=== PATIENT | female | born 1930 | race Caucasian/White ===

== ENCOUNTER 2016-12-25 07:59 | Day surgery (SDC) | payer MEDICARE ==
[~2016-12-25] VITALS: Ht 149.9 cm; Wt 43.5 kg
[~2016-12-25 07:59] MED LIST: ASCO10007 PO; CEPH-375 PO; MULT-696 PO; Vitamin B-12 PO; [UNRECOGNIZED DRUG - OTHER] PO; [UNRECOGNIZED DRUG - OTHER] PO; [UNRECOGNIZED DRUG - OTHER] PO; [UNRECOGNIZED DRUG - OTHER] PO; [UNRECOGNIZED DRUG - OTHER] PO
[2016-12-25] MEDS ORDERED: BUPIVACAINE/PF-EPI 0.5% 1:200K ONE (09:01)
[2016-12-25] MEDS ORDERED: LACTATED RINGERS 1,000 ML IV SCH (09:07)
[2016-12-25 09:24] VITALS: BP 182/62
[2016-12-25] MEDS ORDERED: ACETAMINOPHEN 325 MG TABLET PO PRN (09:30)
[2016-12-25] MEDS ORDERED: OXYcodone 5 MG/5 ML ORAL.SOL UDC PO PRN (09:30)
[2016-12-25] MEDS ORDERED: hydrALAzine 20 MG/ML, 1ML IV PRN (09:30)
[2016-12-25] MEDS ORDERED: ONDANSETRON 2MG/ML, 2ML IVPush PRN (09:30)
[2016-12-25] MEDS ORDERED: HYDROmorphone 1 MG/ML, 1ML IV PRN (09:30)
[2016-12-25] MEDS ORDERED: MIDAZOLAM 1 MG/ML, 2ML IV PRN (09:30)
[2016-12-25] MEDS ORDERED: FENTANYL PF 100 MCG/2ML IV PRN (09:30)
[2016-12-25] MEDS ORDERED: PROMETHAZINE 25 MG/ML, 1ML IV PRN (09:30)
[2016-12-25] MEDS ORDERED: ALBUTEROL SULFATE 2.5 MG/3 ML NPPB PRN (09:30)
[2016-12-25] MEDS ORDERED: LABETALOL 5MG/ML, 20ML IV PRN (09:30)
[2016-12-25] MEDS ORDERED: KETAMINE 10 MG/ML, 20ML ONE (10:15)
[2016-12-25] MEDS ORDERED: PROPOFOL 10 MG/ML, 20ML ONE (10:41)
[2016-12-25] MEDS ORDERED: CEFAZOLIN 1,000 MG ONE (10:41)
[2016-12-25] MEDS ORDERED: ONDANSETRON 2MG/ML, 2ML ONE (10:41)
[2016-12-25] MEDS ORDERED: FENTANYL PF 100 MCG/2ML ONE (10:49)
[2016-12-25] MEDS ORDERED: ACETAMINOPHEN 650 MG/20.3 ML UDC ONE (10:49)
[2016-12-25] MEDS ORDERED: OXYcodone 5 MG/5 ML ORAL.SOL UDC ONE (10:49)
== END 2016-12-25 12:40 | disposition home or self-care (01) ==
LOC: OUT 07:59
PROVIDERS: ATTEND Surgery
DX: C44.722 Squamous cell carcinoma of skin of right lower limb, including hip (principal); Z98.890 Other specified postprocedural states; Z87.891 Personal history of nicotine dependence
CPT/HCPCS: 14021; 88305; J0690; J2405; J2704; J7120

== ENCOUNTER → 2017-04-17 | Outpatient (CLI) | payer MEDICARE ==
[~2017-04-17] MED LIST changes: +ASCO100019 PO; -ASCO10007 PO; +None at this Time
== END | disposition home or self-care (01) ==
LOC: STAR 11:42
PROVIDERS: ATTEND Surgery
DX: Z01.818 Encounter for other preprocedural examination (principal); R94.31 Abnormal electrocardiogram [ECG] [EKG]; C44.702 Unspecified malignant neoplasm of skin of right lower limb, including hip
CPT/HCPCS: 93005

== ENCOUNTER → 2017-05-29 | Outpatient (CLI) | payer MEDICARE ==
[~2017-05-29] MED LIST changes: +REGADENOSON 0.4 MG/5 ML SYRINGE ONE
== END ==
LOC: CVU 07:45
PROVIDERS: ATTEND Internal Medicine Cardiovascular Disease
DX: I08.1 Rheumatic disorders of both mitral and tricuspid valves (principal); E86.0 Dehydration
CPT/HCPCS: 78452; 93017; 93306; A9502; J2785

== ENCOUNTER 2018-12-31 08:50 | Outpatient (CLI) | payer MEDICARE | END 2018-12-31 23:59 | disposition home or self-care (01) | LOC: CFH 08:50 | PROVIDERS: ATTEND Homeopath | DX: Z13.220 Encounter for screening for lipoid disorders (principal); Z13.0 Encounter for screening for diseases of the blood and blood-forming organs and certain disorders involving the immune mechanism; E72.11 Homocystinuria; E78.00 Pure hypercholesterolemia, unspecified; E03.8 Other specified hypothyroidism; R68.89 Other general symptoms and signs; R74.8 Abnormal levels of other serum enzymes; R53.82 Chronic fatigue, unspecified | CPT/HCPCS: 36415; 80053; 80061; 82306; 82977; 83090; 83540; 83550; 83615; 84100; 84436; 84439; 84443; 84481; 84550; 85025 ==